=== PATIENT | female | born 1975 | race Caucasian/White ===

== ENCOUNTER → 2016-03-04 | Outpatient (CLI) | payer BC ==
[~2016-03-04] VITALS: Ht 160 cm; Wt 111.4 kg
[~2016-03-04] MED LIST: FERRIMIN 150150 M1 PO; PROZAC40 MG PO; SYNTHROID0.088 MG/T PO; TOPROL XL 25MG25 MG PO; ULTRAM 50MG TAB50 MG PO; ZANTAC 150150 MG PO
[2016-03-04 07:17] VITALS: BP 182/90; PULSE 62
[2016-03-04 08:30] VITALS: BP 150/80; PULSE 58
== END ==
LOC: COL.RAD 06:46
DX: M54.5 Low back pain (principal); M43.16 Spondylolisthesis, lumbar region
CPT/HCPCS: J3301

== ENCOUNTER → 2016-03-28 | Outpatient (CLI) | payer BC ==
[~2016-03-28] VITALS: Ht 160 cm; Wt 110.5 kg
[2016-03-28 13:59] VITALS: BP 157/93; PULSE 68
[2016-03-28 15:55] VITALS: BP 154/89; PULSE 67
== END ==
LOC: COL.RAD 13:30
DX: M54.5 Low back pain (principal); M43.16 Spondylolisthesis, lumbar region
CPT/HCPCS: J3301

== ENCOUNTER → 2016-05-02 | Outpatient (CLI) | payer BC ==
[~2016-05-02] VITALS: Ht 160 cm; Wt 111.4 kg
[2016-05-02 12:07] VITALS: BP 168/94; PULSE 65
[2016-05-02 13:50] VITALS: BP 171/95; PULSE 63
== END ==
LOC: COL.RAD 11:44
DX: M54.5 Low back pain (principal); M54.16 Radiculopathy, lumbar region
CPT/HCPCS: J3301

== ENCOUNTER 2018-05-24 07:46 | Day surgery (SDC) | payer BC ==
[~2018-05-24] VITALS: Ht 160.1 cm; Wt 111.4 kg
[2018-05-24] VITALS (12 sets, daily range): BP systolic 94–131; BP diastolic 48–57; PULSE 52–63; TEMP 97.9
[2018-05-24 08:25] LABS: HEMOGLOBIN 12.8 g/dl (12.5-16.0); MEAN CELL VOLUME 88 fl (80.0-100.0); MEAN CORPUSCULAR HEMOGLOBIN 31 pg (27.0-31.0); MEAN CORPUSCULAR HGB CONC 35 g/dl (33.0-37.0); MEAN PLATELET VOLUME 11.5 fl (7.4-10.4); PLATELET COUNT 245 K/mm3 (130-400); RED BLOOD COUNT 4.17 M/mm3 (4.10-5.30); REDCELL DISTRIBUTION WIDTH-CV 12.5 % (11.5-14.5)
[2018-05-24] MEDS ORDERED: PROZAC40 MG PO (08:26)
[2018-05-24] MEDS ORDERED: HYGROTON 2525 MG/TAB PO (08:28)
[2018-05-24] MEDS ORDERED: PRILOSEC 20MG20 MG PO (08:28)
[2018-05-24] MEDS ORDERED: KLOR-CON M2020 MEQ PO (08:29)
[2018-05-24] MEDS ORDERED: ZOCOR 40MG40 MG PO (08:29)
[2018-05-24] MEDS ORDERED: NIACIN 64 MG-501 TA1 PO (08:30)
[2018-05-24 08:39] LABS: HEMATOCRIT 36.7 % (37.0-47.0)
[2018-05-24 09:02] LABS: INR 1.2 (0.8-3.0); PROTHROMBIN TIME 13.4 SECONDS (9.7-12.8)
[2018-05-24 09:05] LABS: CALCIUM 9.4 mg/dL (8.4-10.2); CREATININE, serum 0.81 mg/dL (0.52-1.25); POTASSIUM 3.3 mmol/L (3.4-5.0)
--- NOTE | 2018-05-24 10:24 | NUR ---
ALL MEDICATIONS GIVEN WITH VERBAL ORDER AND READBACK WITH MD. SEE MERGE FOR ALL MEDICATION ADMIN TIMES. SEE MERGE FOR ALL RASS ASSESSMENTS DURING AND POST PROCEDURE.
--- NOTE | 2018-05-24 11:30 | NUR ---
Back from [facility]. Right groin site soft to palpation with good pedal pulses palpable. VSS. family bedside
--- NOTE | 2018-05-24 16:04 | NUR ---
INT discontinued intact. Discharge instructions given. Transferred to private car by kadie
== END 2018-05-24 16:24 | disposition home or self-care (01) ==
LOC: COL.CAR 07:46
PROVIDERS: Internal Medicine Cardiovascular Disease
DX: R06.02 Shortness of breath (principal); R94.39 Abnormal result of other cardiovascular function study; E78.5 Hyperlipidemia, unspecified; I10 Essential (primary) hypertension; R55 Syncope and collapse; Z88.8 Allergy status to other drugs, medicaments and biological substances; Z80.3 Family history of malignant neoplasm of breast; Z83.79 Family history of other diseases of the digestive system; Z82.49 Family history of ischemic heart disease and other diseases of the circulatory system; Z84.1 Family history of disorders of kidney and ureter
CPT/HCPCS: J1644; J2250; J3010; Q9967

== ENCOUNTER 2023-10-10 06:37 | Day surgery (SDC) | payer BC ==
[2023-10-10] VITALS (7 sets, daily range): BP systolic 130–158; BP diastolic 66–81; PULSE 62–71; TEMP 97–98.5
[~2023-10-10] VITALS: Ht 160 cm; Wt 112.4 kg
[~2023-10-10 06:37] MED LIST changes: +HYGROTON 2525 MG/TAB PO; +KLOR-CON M2020 MEQ PO; +NIACIN 64 MG-501 TA1 PO; +PRILOSEC 20MG20 MG PO; +ZOCOR 40MG40 MG PO
--- NOTE | 2023-10-10 07:30 | NUR ---
pt admitted to room, family at bedside. vss. med rec and admission assessment complete. pt reports having hysterectomy, no HCG required. 20g IV started to left forearm. pt NPO for surgery. oriented to room. call light in reach. no needs at this time.
[2023-10-10] MEDS ORDERED: ZOLOFT 50MG50 MG PO (07:39)
[2023-10-10] MEDS ORDERED: TORADOL 10MG TA10 MG PO (07:48)
[2023-10-10] MEDS ORDERED: HYDROmorphone 1 MG/1 ML SYRINGE [PACU/SDC ONLY] IV PRN (08:00)
[2023-10-10] MEDS ORDERED: Ondansetron 4 MG/2 ML VIAL IV PRN ×2 (08:00→10:30)
[2023-10-10] MEDS ORDERED: hydrALAZINE 20 MG/ML 1 ML VIAL IV PRN (08:00)
[2023-10-10] MEDS ORDERED: fentaNYL 50 MCG/ML 1 ML SYRINGE/VIAL [PACU/SDC ONLY] IV PRN (08:00)
[2023-10-10] MEDS ORDERED: Meperidine 50 MG/ML 1 ML VIAL IV PRN (08:00)
--- NOTE | 2023-10-10 08:30 | NUR ---
pt off floor for procedure.
[2023-10-10] MEDS ORDERED: fentaNYL 50 MCG/ML 2 ML VIAL ONE ×2 (09:26→10:13)
[2023-10-10] MEDS ORDERED: Ketorolac 30 MG/ML VIAL ONE (09:28)
[2023-10-10] MEDS ORDERED: Lidocaine PF 2% (20 MG/ML) 5 ML VIAL ONE (09:28)
[2023-10-10] MEDS ORDERED: Ondansetron 4 MG/2 ML VIAL ONE (09:28)
[2023-10-10] MEDS ORDERED: dexAMETHasone 10 MG/ML VIAL ONE (09:28)
[2023-10-10] MEDS ORDERED: Glycopyrrolate 0.2 MG/ML 1 ML VIAL ONE (09:48)
[2023-10-10] MEDS ORDERED: Lidocaine 2% (20 MG/ML) 20 ML UROJET UR ONE (10:12)
[2023-10-10] MEDS ORDERED: LR 1,000 ML IV ONE (10:18)
[2023-10-10] MEDS ORDERED: Naloxone 0.4 MG/ML VIAL IV PRN (10:30)
[2023-10-10] MEDS ORDERED: Hyoscyamine 0.125 MG Sublingual TAB SL PRN (10:30)
[2023-10-10] MEDS ORDERED: Acetaminophen 325 MG TAB PO PRN (10:30)
[2023-10-10] MEDS ORDERED: Iohexol 350 - 100 ML VIAL URETER -L ONE (10:44)
--- NOTE | 2023-10-10 11:11 | NUR ---
Data: Spiritual Care visit offered to Patient's who was waiting in Patient's room while Patient was in surgery. declined. Assessment: None at this time. Plan of Care: [employer] educated Patient's as to how to request [employer] Surveillance if he changes his mind. [facility] will remain available as requested while Patient is admitted to this hospital.
--- NOTE | 2023-10-10 11:14 | NUR ---
pt back in room from procedure, family at bedside. vss. pt reports she "feels so much better." pt tolerating water. instructed pt on how to order lunch.
--- NOTE | 2023-10-10 12:46 | NUR ---
INT discontinued. discharge instructions given to pt, all questions answered. pt requesting work note to be off all next week.
--- NOTE | 2023-10-10 13:03 | NUR ---
pt escorted to personal vehicle by wheelchair.
== END 2023-10-10 13:03 | disposition home or self-care (01) ==
LOC: SDCO 06:37 → SURG 10:00 → EDSTATUS 10:00 → SURG 13:03 → SDCO 13:03 → SURG 13:54
DX: N13.2 Hydronephrosis with renal and ureteral calculous obstruction (principal); D09.0 Carcinoma in situ of bladder; E66.01 Morbid (severe) obesity due to excess calories; Z68.41 Body mass index [BMI] 40.0-44.9, adult
CPT/HCPCS: C1769; G0378; J0690; J1100; J1885; J2405; J2704; J3010; J7120; Q9967